=== PATIENT | female | born 2000 | race Caucasian/White ===

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

== ENCOUNTER 2023-06-06 17:07 | Outpatient (REF) | payer MEDICAID, SELFPAY ==
[2023-06-06 17:42] LABS: HCT 38.3 % (36.0-46.0); HGB 13.1 g/dL (11.2-15.7); MCH 28.5 pg (27.0-33.0); MCHC 34.2 % (32.0-36.0); MCV 83 fL (80-95); MPV 11.4 fL (8.0-11.0); Platelet Count 329 10^3/uL (130-400); RBC 4.59 10^6/uL (3.93-5.22); RDW 11.9 % (11.7-14.6); WBC 6.85 10^3/uL (4.4-10.8)
[2023-06-06 17:52] LABS: Mono Screening Negative (Negative)
[2023-06-06 18:00] LABS: Anion Gap 9.5 mmol/L (3-11); BUN 8 mg/dL (7-18); CO2 24.5 mmol/L (21.0-32.0); CREATININE 0.7 mg/dL (0.55-1.02); Calcium 10.4 mg/dL (8.5-10.1); Chloride 105 mmol/L (98-107); Estimated GFR 126.11 (mL/min/1.73m2); Glucose 119 mg/dL (74-106); Sodium 139 mmol/L (136-145); TSH (W/Ref FT4) 0.85 uIU/mL (0.36-3.74)
== END 2023-06-06 17:08 | disposition home or self-care (01) ==
LOC: NCHCN 17:07
PROVIDERS: PCP Family Medicine; Visit Provider Nurse Practitioner Family
DX: M53.83 Other specified dorsopathies, cervicothoracic region (principal)
CPT/HCPCS: 80048; 85027; 84443; 86308

== ENCOUNTER 2023-09-05 19:07 | Outpatient (REF) | payer MEDICAID, SELFPAY ==
[2023-09-05 19:50] LABS: Calcium 9.4 mg/dL (8.5-10.1); Magnesium 2.3 mg/dL (1.8-2.4); PHOSPHORUS 3.6 mg/dL (2.6-4.7)
[2023-09-05 20:39] LABS: Vitamin D 25 Total 18.7 ng/mL (30-100)
[2023-09-08 10:03] LABS: Parathyroid Hormone,Intact 63 pg/mL (19-88)
== END 2023-09-05 19:08 | disposition home or self-care (01) ==
LOC: NCHCN 19:07
PROVIDERS: PCP Family Medicine; Visit Provider Family Medicine
DX: E83.52 Hypercalcemia (principal)
CPT/HCPCS: 82306; 82310; 83735; 83970; 84100

== ENCOUNTER 2023-11-07 11:24 | Outpatient (REF) | payer MEDICAID, SELFPAY ==
[2023-11-07 15:42] LABS: Vitamin D 25 Total 43.1 ng/mL (30-100)
== END 2023-11-07 11:25 | disposition home or self-care (01) ==
LOC: NCHCN 11:24
PROVIDERS: PCP Family Medicine; Referring Provider Family Medicine; Visit Provider Family Medicine
DX: E55.9 Vitamin D deficiency, unspecified (principal)
CPT/HCPCS: 82306